=== PATIENT | female | born 1975 | race American Indian/Alaskan Native ===

== ENCOUNTER 2018-10-04 13:10 | Emergency (ER) | payer BC, OTHER ==
[2018-10-04 13:24] VITALS: BP 147/95
--- NOTE | 2018-10-04 13:24 | Emergency Department Report ---
Blank Doc - Documentation Documentation: This is a 43-year-old female that presents with right sided neck pain and lower back pain. Also has right thigh pain s/p fall. Denies any head injuries or any other complaints. This initial assessment/diagnostic orders/clinical plan/treatment(s) is/are subject to change based on patient's health status, clinical progression and re- assessment by fellow clinical providers in the ED. Further treatment and workup at subsequent clinical providers discretion. Patient/guardians urged not to elope from the ED as their condition may be serious if not clinically assessed and managed. Initial orders include: 1- Patient sent to [facility] for further evaluation and treatment 2- xray
[2018-10-04 14:07] LABS: HCG Qualitative,Urine Negative (Negative)
[2018-10-04 14:15] LABS: Bacteria,Urine 1+ /HPF (Negative); Bilirubin,Urine NEG (Negative); Blood,Urine LG (Negative); Color,Urine Yellow (Yellow); Mucus,Urine 1+ /HPF; Protein,Urine <15 mg/dL mg/dL (Negative); Urobilinogen,Urine < 2.0 mg/dL (<2.0)
--- NOTE | 2018-10-04 15:17 | XRay Report ---
Right femur 2 views: History: Pain. Findings: No fracture, periosteal reaction, lytic lesion or soft tissue calcification. Impression: Essentially negative right femur
--- NOTE | 2018-10-04 15:18 | XRay Report ---
Cervical spine 3 views: History: Pain status post fall. Findings: Normal height of vertebral or intervertebral disc. Normal articular surfaces. Normal prevertebral soft tissue. Impression: Essentially negative cervical spine.
--- NOTE | 2018-10-04 15:18 | XRay Report ---
Lumbar spine 3 views: History: Pain status post fall. Findings: Normal height of vertebral bodies and intervertebral disc. Normal articular surfaces. No fracture. No paravertebral mass. Impression: No evidence of acute fracture.
[2018-10-04] MEDS ORDERED: DELTASONE PO ONE (17:02)
--- NOTE | 2018-10-04 17:12 | Emergency Department Report ---
ED Fall HPI - General Chief Complaint: Pain General Stated Complaint: NEED XRAY/WORK INJURY Time Seen by Provider: 10/04/18 13:22 Source: patient Mode of arrival: Ambulatory - History of Present Illness Initial Comments: This is a 43-year-old female presents to ED complaining of right upper shoulder and back pain status post fall 3 days ago. Patient states that she was walking and getting into an elevator and on over read that there was a step and she tripped and fell and landed on her buttock. Patient states yesterday she began having worsening pain from the incident. Patient states she didn't hit her head during an incidental have any loss of consciousness. 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 Loss of Consciousness: none Prolonged Down Time?: no Symptoms Prior to Fall: none, other (tripped) Location: back Location - Extremities: Right: Shoulder (pain) Severity: mild Severity scale (0 -10): 5 Quality: aching Context: tripped/slipped Associated Symptoms: denies: headache, neck pain, chest paint, shortness of breath, abdominal pain - Related Data Previous Rx's Medication Instructions Recorded Last Taken Type Cyclobenzaprine [Flexeril] 10 mg PO QHS PRN #20 tablet 10/04/18 Unknown Rx Ibuprofen [Motrin] 800 mg PO Q8HR #30 tablet 10/04/18 Unknown Rx Allergies Allergy/AdvReac Type Severity Reaction Status Date / Time No Known Allergies Allergy Unverified 10/04/18 13:13 ED Review of Systems ROS: Stated complaint: NEED XRAY/WORK INJURY Other details as noted in HPI Comment: All other systems reviewed and negative ED Past Medical Hx - Past Medical History Previous Medical History?: No - Surgical History Past Surgical History?: No - Social History Smoking Status: Never Smoker Substance Use Type: None - Medications Home Medications: Home Medications Medication Instructions Recorded Confirmed Last Taken Type Cyclobenzaprine [Flexeril] 10 mg PO QHS PRN #20 tablet 10/04/18 Unknown Rx Ibuprofen [Motrin] 800 mg PO Q8HR #30 tablet 10/04/18 Unknown Rx ED Physical Exam - General Limitations: No Limitations General appearance: alert, in no apparent distress - Head Head exam: Present: atraumatic, normocephalic - Eye Eye exam: Present: normal appearance - ENT ENT exam: Present: mucous membranes moist - Neck Neck exam: Present: normal inspection - Respiratory Respiratory exam: Present: normal lung sounds bilaterally. Absent: respiratory distress - Cardiovascular Cardiovascular Exam: Present: regular rate, normal rhythm. Absent: systolic murmur, diastolic murmur, rubs, gallop - GI/Abdominal GI/Abdominal exam: Present: soft, normal bowel sounds - Extremities Exam Extremities exam: Present: normal inspection, full ROM, tenderness (palpation of the scapula region, no swelling, no deformity or lesions seen). Absent: joint swelling - Back Exam Back exam: Present: normal inspection - Neurological Exam Neurological exam: Present: alert, oriented X3 - Psychiatric Psychiatric exam: Present: normal affect, normal mood - Skin Skin exam: Present: warm, dry, intact, normal color. Absent: rash ED Course Vital Signs 10/04/18 10/04/18 13:23 17:26 Temperature 98.3 F Pulse Rate 103 H Respiratory 18 18 Rate Blood Pressure 147/95 O2 Sat by Pulse 100 Oximetry ED Medical Decision Making - Radiology Data Radiology results: report reviewed No acute process on all x-rays - Medical Decision Making 43-year-old female presents to ED with myalgia is status post ground-level fall 4 days ago ED course: Patient received prednisone in ED. Vital signs are normal patient is in no acute distress Discussed with patient follow-up with primary care physician. Discussed the patient and take medications as prescribed. Patient has no neurological deficit. Patient is alert and oriented 3 and understands all instructions given. Discussed drowsiness effect of Flexeril makes her drowsy and not to operate machinery while taking flexeril Critical care attestation.: If time is entered above; I have spent that time in minutes in the direct care of this critically ill patient, excluding procedure time. ED Disposition Clinical Impression: Fall, Myalgia Disposition: -01 TO HOME OR SELFCARE Is pt being admited?: No Does the pt Need Aspirin: No Condition: Stable Instructions: Musculoskeletal Pain (ED), Muscle Spasm (ED) Additional Instructions: Make sure to follow up with the primary care physician as discussed. Take all your medications as you've been prescribed. If you have any worsening symptoms or develop new symptoms please return to ED immediately. Prescriptions: Cyclobenzaprine [Flexeril] 10 mg PO QHS PRN #20 tablet PRN Reason: Muscle Spasm Ibuprofen [Motrin] 800 mg PO Q8HR #30 tablet Referrals: [facility] [Provider Group] - 3-5 Days Forms: Work/School Release Form(ED) Time of Disposition: 17:14
== END 2018-10-04 17:28 | disposition home or self-care (01) ==
LOC: ED 13:10
DX: M54.5 Low back pain (principal); M54.2 Cervicalgia; M79.651 Pain in right thigh; M79.10 Myalgia, unspecified site; W01.198A Fall on same level from slipping, tripping and stumbling with subsequent striking against other object, initial encounter; Y93.89 Activity, other specified; Y92.69 Other specified industrial and construction area as the place of occurrence of the external cause; Y99.8 Other external cause status
CPT/HCPCS: 72040; 72100; 73552; 81001; 81025; 99284; J7512